=== PATIENT | female | born 1970 | race Caucasian/White ===

== ENCOUNTER → 2016-05-27 | Outpatient (CLI) | payer BC ==
[~2016-05-27] MED LIST: AMX875 PO; BCPILLS PO; FLUO10CA48 PO; MONT1TAB3 PO; MULT-506 PO; OMEG10007 PO
--- NOTE | 2016-05-28 07:37 | MAMMOGRAPHY REPORT ---
BILATERAL DIGITAL SCREENING MAMMOGRAM TOMOSYNTHESIS WITH CAD: 05/27/2016 CLINICAL HISTORY: Routine screening. Patient has no complaints. TECHNIQUE: Breast tomosynthesis in addition to standard 2D mammography was performed. Current study was also evaluated with a Computer Aided Detection (CAD) system. COMPARISON: Comparison is made to exams dated: 05/26/2015 mammogram, 05/21/2013 mammogram, 12/16/2014 mammogram, 05/23/2014 mammogram, 05/18/2012 mammogram, and 05/14/2011 mammogram - [facility]. BREAST COMPOSITION: There are scattered areas of fibroglandular density in both breasts. FINDINGS: No suspicious masses, calcifications, or areas of architectural distortion are noted in e ither breast. There has been no significant interval change compared to prior exams. IMPRESSION: ACR BI-RADS CATEGORY 1: NEGATIVE There is no mammographic evidence of malignancy. A 1 year screening mammogram is recommended. The p atient will receive written notification of the results. Approximately 10% of breast cancers are not detected with mammography. A negative mammographic repor t should not delay biopsy if a clinically suggestive mass is present. Emilia Vaughn M.D. ah/:05/27/2016 15:59:41 Emergency Room Physician: Era MINA(R)(M), [facility] letter sent: Normal 1/2 BI-RADS Code: ACR BI-RADS Category 1: Negative
== END | disposition home or self-care (01) ==
LOC: C.MAMM 08:06
PROVIDERS: ATTEND Family Medicine
DX: Z12.31 Encounter for screening mammogram for malignant neoplasm of breast (principal)

== ENCOUNTER 2017-02-20 11:33 | Emergency (ER) | payer BC, OTHER ==
[~2017-02-20] VITALS: Ht 165.1 cm; Wt 73.4 kg
[2017-02-20 11:45] VITALS: TEMP 36.8; Ht 165.1 cm; Wt 73.4 kg
[2017-02-20] MEDS ORDERED: ACETAMINOPHEN 500 MG TAB PO STA (12:23)
--- NOTE | 2017-02-20 13:18 | DIAGNOSTIC IMAGING REPORT ---
CHEST 2 VIEWS ROUTINE, RIGHT RIBS UNILATERAL MIN 2 VIEWS HISTORY: Fall from horse. Right-sided rib pain and shoulder pain. EVAL TRAUMA COMPARISON: Chest 07/11/2015. FINDINGS: The lungs are clear. Cardiac silhouette is normal in size. No pleural effusions. No pneumothorax. No acute rib fractures. IMPRESSION: No acute rib fractures. No pneumothorax. Electronically signed by: Wilfredo Harmon M.D. 02/20/2017 1:17 PM Dictated Date/Time: 02/20/2017 1:12 PM
[2017-02-20] MEDS ORDERED: LEVO-371 PO (13:27)
[2017-02-20] MEDS ORDERED: RANI150T3 PO (13:27)
[2017-02-20 13:41] VITALS: BP 124/81; PULSE 67; O2SAT 100
--- NOTE | 2017-02-20 13:57 | EMERGENCY ROOM VISIT NOTE ---
ED Visit Note First contact with patient: 12:08 CHIEF COMPLAINT: Right upper rib/chest injury after a fall HISTORY OF PRESENT ILLNESS: Patient is a [id number] 46-year-old white female who presents to emergency department for evaluation of right upper rib pain after a fall off of a horse about an hour ago. Patient was in her horse riding class. She states that the horse went down to its knees, and she flipped over the horse's head, landing on her right shoulder and right upper chest onto dirt/sand of the riding ring. She was wearing a helmet, and did not lose consciousness. She both felt and heard a crack in her right shoulder/ upper chest region. She sat on the ground for a few minutes, then was able to get up. She primarily complains of pain in her right upper chest, that radiates towards her shoulder slightly. She notes that she can move her right arm and shoulder relatively normally, without any increased discomfort. She is also able to take a full deep breath, with only a slight pulling sensation in the right upper chest, she denies it is painful. She does not feel short of breath. She notes some right-sided neck discomfort which she feels is muscular. She denies any numbness, tingling or weakness radiating into the right upper extremity. She did not take a medication for discomfort. She rates her pain a 4/10. She denies any posterior neck pain. No other injuries are noted. REVIEW OF SYSTEMS: Review of systems as per HPI. All other systems reviewed were negative. 10 systems reviewed. PMH: Electronic medical records are reviewed and summarized as above/below. See Problem List. SOCIAL HISTORY: Patient lives at home. Employed. Nonsmoker. PHYSICAL EXAM: Vital Signs: Reviewed Nurse's notes. GENERAL: Patient is a well-appearing 46-year-old white female who is awake and alert and in no acute distress. HEENT: Head - normocephalic and atraumatic. Pupils are equal, round, and reactive to light. Extraocular eye muscles are intact and sclera are anicteric. Ears - bilaterally patent canals with no evidence of hemotympanum. Nose - moist nasal mucosa without evidence of trauma or discharge. Mouth - moist buccal mucosa with no trauma to the teeth or signs of malocclusion. Neck: The neck is supple and there is no pain to palpation over the posterior cervical spine and no obvious step-offs or deformities. There is no JVD or tracheal deviation. She does have some right-sided trapezius muscle tenderness. No focal spasm. Full C-spine range of motion. Chest: Patient has some very slight erythema noted of the right upper chest, inferior to the clavicle, no obvious deformity, no contusions or areas of ecchymosis. The clavicles are nontender to palpation bilaterally. She has discomfort to palpation in the right upper rib in the midclavicular line. There is no obvious crepitus or paradoxical chest rise. Heart: Regular rate, and regular rhythm. Lungs: Breath sounds equal and clear to auscultation without wheezes, rales, or rhonchi heard. Abdomen: Soft, completely nontender, nondistended, with good bowel sounds. There is no sign of trauma such as contusions, abrasions or penetrations. There are no palpable pulsatile masses or hepatosplenomegaly. There is no guarding, rigidity, or rebound noted. Extremities: No obvious trauma, deformities, contusions, or edema. There are easily palpable peripheral pulses. Neuro: The patient is awake and alert and easily able to follow commands. Muscle strength is 5 out of 5 in all 4 extremities. Otherwise, neuro exam is unremarkable. Back: The entire thoracic, lumbar, and sacral spine were palpated. No discomfort over the thoracic spine and lumbar spine. There are no obvious step- offs or deformities noted. There are no obvious signs of trauma such as contusions abrasions penetrations noted to the back. EMERGENCY DEPARTMENT COURSE: The patient was seen and examined as above. She was medicated with Tylenol for discomfort. Chest x-ray and right rib x-rays were obtained, and were negative for acute rib fractures or pneumothorax. The patient was reassured. She reported that she felt improved. Conservative care measures were discussed. She was educated on the worrisome signs or symptoms for which she should return to the emergency department. Patient is discharged home with a friend in good condition. Differential diagnoses include clavicle fracture, rib fracture, chest wall contusion, cervical strain, shoulder injury, among others. Medication reconciliation: I attest that I have personally reviewed the patient' s current medication list. Blood pressure screening : Patient was found to have normal blood pressure on screening and does not require follow-up. CHEST 2 VIEWS ROUTINE, RIGHT RIBS UNILATERAL MIN 2 VIEWS HISTORY: Fall from horse. Right-sided rib pain and shoulder pain. EVAL TRAUMA COMPARISON: Chest 07/11/2015. FINDINGS: The lungs are clear. Cardiac silhouette is normal in size. No pleural effusions. No pneumothorax. No acute rib fractures. IMPRESSION: No acute rib fractures. No pneumothorax. Problem List Medical Problems: (1) Cervical polyp Status: Chronic (2) Dizziness Status: Resolved (3) Irregular menses Status: Chronic (4) Palpitations Status: Chronic (5) Vomiting and diarrhea Status: Resolved Current/Historical Medications Scheduled Fluoxetine (Prozac), 10 MG PO DAILY Levocetirizine Dihydrochloride (Xyzal), 5 MG PO DAILY Montelukast Sodium (Singulair), 10 MG PO HS Multivitamin (Multivitamin), 1 TAB PO DAILY Ranitidine Hcl (Zantac), 150 MG PO DAILY Allergies Coded Allergies: Cephalexin (Unverified Allergy, Intermediate, HIVES, 02/20/17) Vital Signs Date Time Temp Pulse Resp B/P (MAP) Pulse Ox O2 Delivery O2 Flow Rate FiO2 02/20/17 13:41 67 18 124/81 100 Room Air 02/20/17 11:45 36.8 79 18 121/84 100 Room Air Medications Administered Medications (Trade) Dose Ordered Sig/Philomena Route Start Time Stop Time Status Last Admin Dose Admin Acetaminophen (Tylenol Tab) 1,000 mg NOW STAT PO 02/20/17 12:23 02/20/17 12:25 DC 02/20/17 12:36 1,000 MG Departure Information Impression Primary Impression: Contusion of rib on right side Additional Impression: Chest wall contusion Referrals Yasir Richardson DO (PCP) Patient Instructions [facility] Additional Instructions Apply ice to affected areas for swelling and pain. Do deep breathing and coughing exercises as instructed. Limit activities until ribs heal. May resume normal activities as pain allows. Gentle stretching and range of motion exercises to help reduce stiffness and spasm. Ibuprofen(Motrin, Advil) may be used for fever or pain. Use 600mg every six hours as needed. Take with food. Avoid using more than 2400mg in a 24 hour period. Do not use 2400mg per day for more than three consecutive days without physician direction. Prolonged inappropriate use can lead to stomach upset or ulcers. (AND/OR) Acetaminophen(Tylenol) may be used for fever or pain. Use 1000mg every six hours as needed. Avoid using more than 3000mg in a 24 hour period. Return to the emergency department for worsening pain, fevers, shortness of breath or any other concerns. Follow-up family doctor as needed. Return to the emergency department for worsening pain, shortness of breath, fevers, or any other concerns. Problem Qualifiers Primary Impression: Contusion of rib on right side Encounter type: initial encounter Qualified Codes: S20.211A - Contusion of right front wall of thorax, initial encounter Additional Impression: Chest wall contusion Encounter type: initial encounter Laterality: right Qualified Codes: S20.211A - Contusion of right front wall of thorax, initial encounter
== END 2017-02-20 14:06 | disposition home or self-care (01) ==
LOC: C.EDB 11:34 → C.EDD 14:06
DX: S20.211A Contusion of right front wall of thorax, initial encounter (principal); V80.010A Animal-rider injured by fall from or being thrown from horse in noncollision accident, initial encounter; Y92.39 Other specified sports and athletic area as the place of occurrence of the external cause; Y93.52 Activity, horseback riding; N84.1 Polyp of cervix uteri; N92.6 Irregular menstruation, unspecified; R00.2 Palpitations

== ENCOUNTER → 2017-04-26 | Outpatient (CLI) | payer BC ==
[~2017-04-26] MED LIST changes: -AMX875 PO; -BCPILLS PO; +LEVO5TAB2 PO; -OMEG10007 PO; +RANI150T3 PO
== END | disposition home or self-care (01) ==
LOC: C.PAPS 11:40
PROVIDERS: ATTEND Family Medicine
DX: Z01.419 Encounter for gynecological examination (general) (routine) without abnormal findings (principal)

== ENCOUNTER → 2017-05-30 | Outpatient (CLI) | payer OTHER ==
--- NOTE | 2017-05-31 14:37 | MAMMOGRAPHY REPORT ---
BILATERAL DIGITAL SCREENING MAMMOGRAM TOMOSYNTHESIS WITH CAD: 05/30/2017 CLINICAL HISTORY: Routine screening examination. TECHNIQUE: Breast tomosynthesis in addition to standard 2D mammography was performed. Current study was also evaluated with a Computer Aided Detection (CAD) system. COMPARISON: Comparison is made to exams dated: 05/27/2016 mammogram, 05/26/2015 mammogram, 05/23/2014 m ammogram, 05/21/2013 mammogram, 05/18/2012 mammogram, and 05/14/2011 mammogram - [facility]ter. BREAST COMPOSITION: There are scattered areas of fibroglandular density in both breasts. FINDINGS: The parenchymal pattern is unchanged. No developing mass, architectural distortion or clus ter of suspicious microcalcifications is seen in either breast. IMPRESSION: ACR BI-RADS CATEGORY 2: BENIGN There is no mammographic evidence of malignancy. A 1 year screening mammogram is recommended. The pa tient will receive written notification of the results. Approximately 10% of breast cancers are not detected with mammography. A negative mammographic report should not delay biopsy if a clinically suggestive mass is present. Laverne Holder M.D. ay/:05/30/2017 15:12:19 Road Cleaner: Robina MINA(Stacey)(Gem), [facility] letter sent: Normal 1/2 BI-RADS Code: ACR BI-RADS Category 2: Benign
== END | disposition home or self-care (01) ==
LOC: C.MAMM 08:50
PROVIDERS: ATTEND Family Medicine
DX: Z12.31 Encounter for screening mammogram for malignant neoplasm of breast (principal)